=== PATIENT | female | born 1965 | race Caucasian/White ===

== ENCOUNTER → 2020-04-20 | Outpatient (CLI) | payer OTHER ==
[~2020-04-20] MED LIST: TORADOL10 MG PO
== END | disposition home or self-care (01) ==
LOC: US 14:34
PROVIDERS: ATTEND Obstetrics & Gynecology
DX: R10.2 Pelvic and perineal pain (principal); Z90.710 Acquired absence of both cervix and uterus

== ENCOUNTER → 2021-03-20 | Outpatient (CLI) | payer OTHER | END | disposition home or self-care (01) | LOC: COVID19 16:50 | PROVIDERS: ATTEND Student in an Organized Health Care Education/Training Program | DX: Z20.822 Contact with and (suspected) exposure to COVID-19 (principal) ==

== ENCOUNTER → 2023-08-29 | Outpatient (CLI) | payer OTHER | END | disposition home or self-care (01) | LOC: US 09:33 | PROVIDERS: ATTEND Podiatrist | DX: I82.402 Acute embolism and thrombosis of unspecified deep veins of left lower extremity (principal); R20.0 Anesthesia of skin; R20.2 Paresthesia of skin; R60.9 Edema, unspecified ==